=== PATIENT | male | born 1935 ===

== ENCOUNTER 2017-01-01 08:17 | Day surgery (SDC) | payer OTHER ==
[2016-12-09 14:53] VITALS: BMI 28.0
--- NOTE | 2016-12-09 15:28 | PAT Medication Instructions ---
Service Date December 09, 2016. Current Home Medication List Amlodipine (Norvasc), 5 MG PO QAM Apixaban (Eliquis), 5 MG PO BID Ascorbic Acid (Vitamin C), 1 TAB PO QAM Atorvastatin (Lipitor), 10 MG PO QAM Finasteride (Proscar), 5 MG PO QAM Glipizide (Glipizide Er), 1 TAB PO QAM Lisinopril (Prinivil), 10 MG PO QPM Metoprolol Tartrate (Lopressor) (Lopressor), 25 MG PO BID Omeprazole (Prilosec), 20 MG PO QAM Sitagliptin Phosphate (Januvia), 100 MG PO QAM Tamsulosin HCl (Tamsulosin HCl), 4 MG PO HS Medication Instructions For Your Scheduled Surgery - Hold the following medications 2 days prior to surgery per surgeon and prescribing physician's instructions:: Apixaban (Eliquis), 5 MG PO BID - Hold the following medications 24 hours prior to surgery: Lisinopril (Prinivil), 10 MG PO QPM - Hold the following medications the morning of surgery: Ascorbic Acid (Vitamin C), 1 TAB PO QAM Glipizide (Glipizide Er), 1 TAB PO QAM Sitagliptin Phosphate (Januvia), 100 MG PO QAM - Take the following medications the morning of surgery with a sip of water OTHERWISE NOTHING TO EAT OR DRINK AFTER MIDNIGHT: Atorvastatin (Lipitor), 10 MG PO QAM Amlodipine (Norvasc), 5 MG PO QAM Finasteride (Proscar), 5 MG PO QAM Metoprolol Tartrate (Lopressor) (Lopressor), 25 MG PO BID Omeprazole (Prilosec), 20 MG PO QAM - Take the following medications as scheduled the night before surgery: Tamsulosin HCl (Tamsulosin HCl), 4 MG PO HS Metoprolol Tartrate (Lopressor) (Lopressor), 25 MG PO BID If you have any questions please call us at [phone] or [phone] or [phone]
[2016-12-09 15:45] LABS: BASO % 0.2 %; BASO ABS # 0.01 K/uL (0-0.2); COMPLETE YES; HEMATOCRIT 40.3 % (42-52); IG% 0.4 %; LYMPH % 38.4 %; LYMPH ABS # 2.09 K/uL (1.2-3.4); MEAN CORPUSCULAR HGB CONC 33.7 g/dl (32-36); MONO % 7.5 %; NEUT % 49.5 %; PLATELET COUNT 169 K/uL (130-400); RED BLOOD COUNT 4.53 M/uL (4.7-6.1); WHITE BLOOD COUNT 5.44 K/uL (4.8-10.8)
[2016-12-09 15:46] LABS: URINE APPEARANCE CLEAR (CLEAR); URINE BILIRUBIN NEG (NEG); URINE COLOR DK YELLOW; URINE NITRITE NEG (NEG); URINE SPECIFIC GRAVITY 1.024 (1.000-1.030); UROBILINOGEN NEG (NEG)
[2016-12-09 15:50] LABS: MANUAL MICROSCOPIC REQUIRED? NO; REVIEW REQ? NO
[2016-12-09 15:56] LABS: BUN/CREATININE RATIO 13.5 (10-20); CALCIUM 9.2 mg/dl (8.5-10.1); CREATININE 1.2 mg/dl (0.60-1.40); POTASSIUM 4.3 mmol/L (3.5-5.1)
[~2017-01-01] VITALS: Ht 172.7 cm; Wt 83.1 kg
[~2017-01-01 08:17] MED LIST: AMLO-110 PO; APIX1TAB3 PO; ASCA500 PO; ATOR10TA82 PO; CIPROFLOXACIN / D5W 400 MG IV SCH; FENTANYL CITRATE INJ 50 MCG/1 ML 2 ML VIAL ONE; FINA5TAB PO; FLM4 PO; GLIP-199 PO; LACTATED RINGER'S 1000ML 1,000 ML IV SCH; LIDOCAINE HCL 2% 2 ML VIAL (20MG/ML) ONE; LISI10TA PO; METO25TA56 PO; ONDANSETRON INJ 2 MG/ML 2 ML VIAL ONE; PRLSR20 PO; PROPOFOL IV EMULSION 10 MG/ML 20 ML VIAL IV ONE; SITA100T3 PO
[2017-01-01 08:43] VITALS: BP 155/73; PULSE 64; TEMP 36.9; O2SAT 97; Ht 172.7 cm; Wt 83.1 kg
[2017-01-01] MEDS ORDERED: MEPERIDINE HCL 25 MG/ML CARP IV PRN (09:30)
[2017-01-01] MEDS ORDERED: HYDROmorphone INJ 1 MG/ML SYR IV PRN (09:30)
[2017-01-01] MEDS ORDERED: ONDANSETRON INJ 2 MG/ML 2 ML VIAL IV PRN (09:30)
[2017-01-01] MEDS ORDERED: FENTANYL CITRATE INJ 50 MCG/1 ML 2 ML VIAL IV PRN (09:30)
[2017-01-01] MEDS ORDERED: ATROPINE SULFATE 0.1 MG/ML 5ML SYR IV PRN (09:30)
[2017-01-01] MEDS ORDERED: LABETALOL HCL IV 5 MG/ML 20ML IV PRN (09:30)
[2017-01-01] MEDS ORDERED: EpHEDrine SULFATE INJ 50 MG/ML AMP IV PRN (09:30)
--- NOTE | 2017-01-01 10:14 | History & Physical Bridge Note ---
H&P Re-Evaluation Bridge Note: I have examined the patient, reviewed the History & Physical and in the interval since the performance of the History & Physical I have noted the following changes of clinical significance: No changes noted
[2017-01-01] MEDS ORDERED: FENTANYL CITRATE INJ 50 MCG/1 ML 2 ML VIAL ONE (10:39)
[2017-01-01] MEDS ORDERED: BELLADONNA/OPIUM SUPP 60 MG SUPP PR ONE ×2 (10:39→10:46)
[2017-01-01] MEDS ORDERED: PHEN-775 PO (11:21)
[2017-01-01] MEDS ORDERED: CIPR-255 PO (11:21)
[2017-01-01] MEDS ORDERED: HYDR-3419 PO (11:21)
--- NOTE | 2017-01-01 11:21 | Discharge Instructions ---
Discharge Instructions Date of Service January 01, 2017. Admission Reason for Admission: Benign Prostatic Hyperplasia Discharge Discharge Diagnosis / Problem: BPH s/p TURP Discharge Goals Goal(s): Improve function, Improve disease control, Therapeutic intervention Activity Recommendations Activity Limitations: as noted below Lifting Limitations: gradually increase as tolerated, until after follow-up appointment (5 days postop) Exercise/Sports Limitations: rest today, gradually increase as tolerated (5 days postop) May Resume Sexual Activity: after two weeks Shower/Bathe: may shower/bathe in 3 days Driving or Machine Use: resume 3 days after discharge . Instructions / Follow-Up Instructions / Follow-Up Luevano to gravity drainage, blood expected in urine Follow up as scheduled on 01/06/17 at 10:20 AM for catheter removal Follow up as scheduled on 01/19/17 at 2 PM for postoperative visit Discharge Diet Recommended Diet: Regular Diet (good fluid intake) Procedures Procedures Performed: Bipolar TURP Pending Studies Studies pending at discharge: yes List of pending studies: Pathology report Medical Emergencies . Who to Call and When: Medical Emergencies: If at any time you feel your situation is an emergency, please call 911 immediately. . Non-Emergent Contact Non-Emergency issues call your: Urologist Call Non-Emergent contact if: you have a fever, temperature is above 101, your pain is not controlled, your pain is worsening, your pain is unusual for you, your pain is concerning you, wound has increased drainage, wound has increased redness, you have any medication questions . . "Provider Documentation" section prepared by Michael Mireles. . VTE Core Measure Inpt VTE Proph given/why not?: SCD's [place] Drug Monitoring Program Search Results: patient reviewed within database, see additional documentation (recent Rx tramadol 3 months ago)
--- NOTE | 2017-01-01 11:23 | [facility] Post Operative Brief Note ---
Immediate Operative Summary Operative Date January 01, 2017. Pre-Operative Diagnosis Benign Prostatic Hypertrophy Post-Operative Diagnosis Same as preoperative. Procedure(s) Performed Bipolar TURP Surgeon Dr. Naresh Mireles Resort Keeper Surgeon(s) None Estimated Blood Loss 20 ML Findings Open fossa after completion with excellent hemostasis, median bar > lateral lobe Specimens A. Prostate Chips Drains 24 fr lopez 15 cc H2O Anesthesia GALMA Complication(s) None Disposition Recovery Room / PACU
[2017-01-01] MEDS ORDERED: PHENAZOPYRIDINE HCL 200 MG TAB PO PRN (11:30)
[2017-01-01] MEDS ORDERED: HYDROCODONE/ACETAMOPHEN 5/325MG TAB PO PRN (11:30)
[2017-01-01 12:05] VITALS: BP 157/82; PULSE 58; TEMP 36; O2SAT 96
--- NOTE | 2017-01-01 12:18 | OPERATIVE REPORT ---
DATE OF OPERATION: 01/01/2017 PREOPERATIVE DIAGNOSIS: Benign prostatic hypertrophy with obstructive voiding symptoms. POSTOPERATIVE DIAGNOSIS: Same plus meatal stenosis. PROCEDURE: Bipolar transurethral resection and vaporization of the prostate gland, meatal dilation. SURGEON: Dr. Michael Mireles. MANAGER TRANSPORTATION: None. ANESTHESIA: General anesthesia with laryngeal mask. COMPLICATIONS: None. ESTIMATED BLOOD LOSS: 20 mL. DRAINS LEFT IN PLACE: Include a 24-Qatari Luevano catheter with 15 mL sterile water in the balloon. SPECIMENS SENT TO PATHOLOGY: Prostate chips. FINDINGS: Open prostatic fossa after completion of resection with excellent hemostasis. No injury to the intravesical structures. BRIEF HISTORY: Mr. Downs is a pleasant 81-year-old male who has been on medical therapy for enlarged prostate with persistence of his voiding symptoms. Office cystoscopy has demonstrated an enlarged median bar with obstruction and mild lateral lobe hypertrophy. Please see H\T\P for further details. After discussion of risks and benefits of various forms of intervention, the patient has decided upon a transurethral resection of his prostate tissue to manage his disease. Informed consent reviewed on the chart today. Intravenous ciprofloxacin provided for antibiotic coverage and SCDs used for DVT prophylaxis. PROCEDURE: The patient was properly identified and brought to the operative suite. After identification and appropriate consent on the chart, general anesthesia with laryngeal mask was initiated. The patient was prepped and draped in standard fashion for this procedure. senior insight manager international-out procedure was followed. A 24-Qatari resectoscope was introduced into the bladder under direct visualization. A meatal stenosis was encountered not allowing for easy passage of the scope at first. This was dilated to 30 Qatari caliber using male sounds therefore allowing for easy scope passage. Some mild bleeding from this area was tamponade at the end of the case using a Luevano catheter. On entering the bladder, an elevated bladder neck was appreciated. Ureteral orifices were present in their normal anatomic location both effluxing clear, yellow urine. No intravesical papillary masses or calculi were appreciated. Grade II trabeculation was noted. Using a bipolar loop, the median bar was shaved down until flush with the trigone. Prostate chips were irrigated free. A bipolar button was used to vaporize the lateral lobes to the extent that they were obstructive and provide relaxing incisions at the 5 and 7 o'clock position. This was also used for cautery for excellent hemostasis at the end of the case. Great care was taken to avoid any injury to the ureteral orifices, which were noted to be intact at the end of the case. Dissection was limited proximal to the prostate tissue, proximal to the verumontanum. After completion of the case, an open prostatic fossa was appreciated with excellent hemostasis and no tissue or chips within the bladder. Again, no injury to the intravesical structures. After excellent hemostasis was obtained, bladder was partially distended and resectoscope was removed. A 24-Qatari Luevano catheter was placed over a catheter guide with return of clear irrigant. 15 mL of sterile water were placed within the balloon and catheter was placed to gravity drainage after being irrigated with isovolumic return. Belladonna and opium suppository was provided for additional postoperative analgesia. Anesthesia care was reversed. The patient was transferred to recovery room in stable condition. FOLLOW-UP CARE: The patient will be discharged home with Luevano catheter in place. Outpatient trial of void is set for tomorrow. Postoperative appointment is in place and confirmed. Prescription for ciprofloxacin, Vicodin and Pyridium are provided for postoperative antibiotic coverage and analgesia. The patient knows how to perform CIC should he develop any difficulties over the long weekend. The patient is instructed to contact our service should he note any fevers, chills, nausea, vomiting or other significant difficulties in the postoperative period. Please see discharge instruction sheet for further details. I attest to the content of the Intraoperative Record and any orders documented therein. Any exceptions are noted below. PENNIE
[2017-01-01 12:35] VITALS: BP 153/71; PULSE 63; TEMP 36.3; O2SAT 97
--- NOTE | 2017-01-01 12:35 | Anesthesiology Progress Note ---
Anesthesia Post Op Note Date & Time January 01, 2017 at 12:35 Vital Signs Pain Intensity: 3.5 Vital Signs Past 12 Hours Date Time Temp Pulse Resp B/P Pulse Ox O2 Delivery O2 Flow Rate FiO2 01/01/17 12:05 36 58 18 157/82 96 Room Air 01/01/17 11:50 36 63 16 142/75 93 Room Air 01/01/17 11:40 63 16 142/75 93 Room Air 01/01/17 11:30 64 16 139/82 100 Mask 10 01/01/17 11:20 56 16 129/71 100 Mask 10 01/01/17 11:11 36.1 68 16 108/74 99 Mask 10 01/01/17 08:43 36.9 64 16 155/73 97 Room Air Notes Mental Status: alert / awake / arousable, participated in evaluation Pt Amnestic to Procedure: Yes Nausea / Vomiting: adequately controlled Pain: adequately controlled Airway Patency, RR, SpO2: stable & adequate BP & HR: stable & adequate Hydration State: stable & adequate Anesthetic Complications: no major complications apparent
[2017-01-01] MEDS ORDERED: HYDROCODONE/ACETAMOPHEN 5/325MG TAB ONE (12:36)
[2017-01-01 13:05] VITALS: BP 163/74; PULSE 60; TEMP 36.3; O2SAT 97
== END 2017-01-01 13:44 | disposition home or self-care (01) ==
LOC: C.ACU 08:17
PROVIDERS: ATTEND Urology
DX: N40.1 Benign prostatic hyperplasia with lower urinary tract symptoms (principal); N13.8 Other obstructive and reflux uropathy; Q64.33 Congenital stricture of urinary meatus; I10 Essential (primary) hypertension; I51.9 Heart disease, unspecified; E11.9 Type 2 diabetes mellitus without complications; Z79.84 Long term (current) use of oral hypoglycemic drugs; Z79.899 Other long term (current) drug therapy